=== PATIENT | female | born 1995 | race African-American/Black ===

== ENCOUNTER 2023-05-11 12:00 | Observation (INO) | payer OTHER ==
[2023-05-11 12:25] VITALS: BMI 27.9
[2023-05-11 15:45] LABS: ALT (SGPT) 8 U/L (8-55); AST (SGOT) 14 U/L (5-34); Albumin 3.6 g/dL (3.5-5.0); Alkaline Phosphatase 53 U/L (40-110); Anion Gap 12 mmol/L (10-20); BUN (Urea Nitrogen) 7 mg/dL (7.0-18.7); Bilirubin, Total 0.2 mg/dL (0.2-1.2); Calc. Creatinine Clearance 157 mL/min (70-130); Calcium 8.7 mg/dL (7.8-10.44); Carbon Dioxide 25 mmol/L (22-29); Chloride 103 mmol/L (98-107); Estimated GFR 125; Globulin 3.3 g/dL (2.4-3.5); Glucose 76 mg/dL (70-105); Potassium 3.8 mmol/L (3.5-5.1); Protein, Total 6.9 g/dL (6.0-8.3); Sodium 136 mmol/L (136-145)
[2023-05-11 16:04] LABS: #Monocytes 0.6 10x3/uL (0.0-1.1); %Basophils 0.1 % (0.0-2.0); %Eosinophils 0.1 % (0.0-6.0); %Lymphocytes 15.3 % (18.0-47.0); %Monocytes 4.4 % (0.0-10.0); %Neutrophils 79.7 % (40.0-75.0); Hemoglobin 10.8 g/dL (12.0-15.5); Mean Corpuscular HGB CONC 32.7 g/dL (32.0-36.0); Mean Corpuscular Hemoglobin 26.9 pg (27.0-33.0); Mean Corpuscular Volume 82.3 fl (81.6-98.3); Mean Platelet Volume 9.2 fl (7.4-10.4); Platelet Count 280 10x3/uL (150-450); RBC Distribution Width 12.5 % (11.5-14.5); Red Blood Cell (RBC) Count 4.01 10x6/uL (3.90-5.03); White Blood Cell (WBC) Count 12.6 10x3/uL (3.5-10.5)
[2023-05-11] MEDS ORDERED: Misoprostol 200 MCG TAB ONE (16:37)
[2023-05-11] MEDS ORDERED: Methylergonovine 0.2 MG/ML VIAL ONE (16:38)
[2023-05-11] MEDS ORDERED: Lidocaine 1% PF 5 ML VIAL ONE (16:52)
[2023-05-11] MEDS ORDERED: Rocuronium Bromide 10 MG/ML (10ML VIAL) ONE (16:52)
[2023-05-11] MEDS ORDERED: PROPOFOL 20 ML ONE (16:52)
[2023-05-11] MEDS ORDERED: PHENYLEPHRINE-NS 100 MCG/ML 10 ML SYRINGE ONE (16:52)
[2023-05-11] MEDS ORDERED: Midazolam HCl 2 mg/2 ml Vial ONE (16:52)
[2023-05-11] MEDS ORDERED: Lidocaine 4% PF 5 ML AMP ONE (16:52)
[2023-05-11] MEDS ORDERED: fentaNYL 50 mcg/mL 1 mL Vial ONE (16:52)
[2023-05-11] MEDS ORDERED: ePHEDrine Sulfate 50 MG/10 ML VIAL ONE (16:52)
[2023-05-11] MEDS ORDERED: CEFAZOLIN 1 GM VIAL ONE ×2 (16:56)
[2023-05-11] MEDS ORDERED: Glycopyrrolate 0.2 MG/ML 5 ML SYRINGE ONE (17:22)
[2023-05-11] MEDS ORDERED: Dexamethasone 4 mg/ml Vial ONE (17:22)
[2023-05-11] MEDS ORDERED: Ondansetron PF 4 MG/2 ML Vial ONE (17:22)
[2023-05-11] MEDS ORDERED: SUGAMMADEX SODIUM 200 MG/2 ML VIAL ONE (17:23)
[2023-05-11] MEDS ORDERED: Acetaminophen 325 MG TAB PO PRN (17:40)
[2023-05-11] MEDS ORDERED: HYDROcodone/Acetaminophen 5/325 mg Tablet PO PRN (17:40)
[2023-05-11] MEDS ORDERED: Ondansetron PF 4 MG/2 ML Vial IVP PRN (17:43)
[2023-05-11 21:02] LABS: Hematocrit 33.2 % (34.9-44.5); Hemoglobin 11.4 g/dL (12.0-15.5)
[2023-05-11] MEDS: Lactated Ringer's 1,000 ML IV SCH (21:25)
[2023-05-12] MEDS: QUEtiapine 100 MG TAB PO SCH ×2 (03:37→22:28)
[2023-05-12 04:14] LABS: Bilirubin Neg (Negative); Blood, Urine 25 (Negative); Clarity Clear (Clear); Glucose, Urine (Dipstick) Normal (Negative); Ketone, Urine Negative (Negative); Leukocyte Negative (Negative); Nitrite Negative (Negative); Protein, Urine (Dipstick) Negative (Neg-Trace)
[2023-05-12 04:21] LABS: Amphetamine Detected (NotDetected); Barbiturates Screen Not Detected (NotDetected); Benzodiazepine Screen Not Detected (NotDetected); Cocaine Metabolite Screen Detected (NotDetected); Methadone Not Detected (NotDetected); Methamphetamine Detected (NotDetected); Opiate Screen Not Detected (NotDetected); Oxycodone Screen Not Detected (NotDetected); Phencyclidine (PCP) Not Detected (NotDetected); THC/Cannabinoid Screen Not Detected (NotDetected); Tricyclic Screen Not Detected (NotDetected)
[2023-05-12 04:25] LABS: Bacteria/HPF None Seen HPF (None Seen); CAUTI Indications for Culture Pregnancy; Squamous Epithelial 0-3 HPF (0-3); WBC/HPF 0-3 HPF (0-3)
[2023-05-12 04:26] LABS: Urine Culture Reflex Yes Yes
[2023-05-12 05:27] LABS: HBSAg Index 0.24 S/CO (0-0.99); HIV (1/2) Antibody/Antigen Non-Reactive (NonReactive); HIV 1/2 INDEX 0.07 S/CO (<1.00); Hep B Surf Ag Non-Reactive S/CO (NonReactive)
[2023-05-12 05:30] LABS: Syphilis Antibody Index 28.23 S/CO (<1.00 Non-Reactive)
[2023-05-12 05:36] LABS: Syphilis Antibody REACTIVE (Nonreactive); Syphilis Titer 1:16 Titer (Negative)
[2023-05-12 09:11] LABS: #Monocytes 0.7 10x3/uL (0.0-1.1); #Neutrophils 9.5 10x3/uL (1.5-8.4); %Basophils 0.1 % (0.0-2.0); %Eosinophils 0.1 % (0.0-6.0); %Lymphocytes 21.5 % (18.0-47.0); %Monocytes 5.1 % (0.0-10.0); %Neutrophils 72.8 % (40.0-75.0); Hematocrit 27.4 % (34.9-44.5); Hemoglobin 9.2 g/dL (12.0-15.5); Mean Corpuscular HGB CONC 33.6 g/dL (32.0-36.0); Mean Corpuscular Hemoglobin 27.7 pg (27.0-33.0); Mean Corpuscular Volume 82.5 fl (81.6-98.3); Mean Platelet Volume 9.5 fl (7.4-10.4); Platelet Count 262 10x3/uL (150-450); RBC Distribution Width 12.5 % (11.5-14.5); Red Blood Cell (RBC) Count 3.32 10x6/uL (3.90-5.03)
[2023-05-12 14:27] LABS: Hep C IgG Ab Non-Reactive S/CO (NonReactive)
[2023-05-12 14:29] LABS: Hep C Index 0.08 S/CO (0-0.79)
[2023-05-12] MEDS: Bicillin LA 2.4 MILL.UNITS/4 ML SYRINGE IM SCH (15:59)
[2023-05-13 04:26] LABS: #Eosinphils 0.1 10x3/uL (0.0-0.5); #Monocytes 0.5 10x3/uL (0.0-1.1); #Neutrophils 4.2 10x3/uL (1.5-8.4); %Basophils 0.2 % (0.0-2.0); %Eosinophils 1.4 % (0.0-6.0); %Lymphocytes 40.1 % (18.0-47.0); %Neutrophils 51.9 % (40.0-75.0); Hemoglobin 9.1 g/dL (12.0-15.5); Mean Corpuscular HGB CONC 33.7 g/dL (32.0-36.0); Mean Corpuscular Hemoglobin 28.3 pg (27.0-33.0); Mean Corpuscular Volume 83.9 fl (81.6-98.3); Mean Platelet Volume 9.4 fl (7.4-10.4); Platelet Count 242 10x3/uL (150-450); RBC Distribution Width 12.4 % (11.5-14.5); Red Blood Cell (RBC) Count 3.22 10x6/uL (3.90-5.03); White Blood Cell (WBC) Count 8.1 10x3/uL (3.5-10.5)
[2023-05-13 12:25] VITALS: BP 124/72; TEMP 98.7
== END 2023-05-13 14:26 | disposition home or self-care (01) ==
LOC: CSHLD/OP 12:00 → EEVIPCON 13:28 → INTOOBSV 13:28 → CSHLD 13:28 → CSHPP 17:40 → CSHTELE 05-12 01:18
PROVIDERS: ADMIT Obstetrics & Gynecology; ATTEND Obstetrics & Gynecology
PROC: 10D17ZZ Extraction of Products of Conception, Retained, Via Natural or Artificial Opening (ICD-10-PCS; principal; 2023-05-11)
DX: O03.4 Incomplete spontaneous abortion without complication (principal); I10 Essential (primary) hypertension; F19.10 Other psychoactive substance abuse, uncomplicated; F31.9 Bipolar disorder, unspecified; F29 Unspecified psychosis not due to a substance or known physiological condition; Z79.899 Other long term (current) drug therapy
CPT/HCPCS: 36415; 76856; 80053; 80306; 81001; 84702; 85025; 86593; 86780; 86803; 86850; 86900; 86901; 87086; 87340; 87389; 88300; 88305; J0561; J0690; J1100; J2210; J2250; J2405; J2704; J3010; J7120